=== PATIENT | male | born 1975 | race Two or more races ===

== ENCOUNTER 2017-08-04 16:33 | Emergency (ER) | payer MEDICAID ==
[~2017-08-04] VITALS: Ht 172.7 cm; Wt 99.8 kg
[2017-08-04] MEDS ORDERED: oxyCODONE HCL/Acetaminophen 5/325mg ORAL ONE (17:15)
[2017-08-04] MEDS ORDERED: Ketorolac 30mg Inj IV ONE (19:00)
[2017-08-04] MEDS ORDERED: Morphine Sulfate 4mg/ml Inj IVP ONE (19:00)
[2017-08-04 19:17] VITALS: BP 136/71
[2017-08-04 20:30] LABS: BASOPHILS % (AUTO) 0.9 % (0.0-2.0); EOSINOPHILS % (AUTO) 1.2 % (0.0-3.0); LYMPHOCYTES % (AUTO) 21.5 % (20.0-45.0); MEAN CORPUSCULAR HGB CONC 30.8 G/DL (32.0-36.0); MEAN CORPUSCULAR VOLUME 71 FL (80-99); MEAN PLATELET VOLUME 7.2 FL (6.5-10.1); MONOCYTES % (AUTO) 4.4 % (1.0-10.0); PLATELET COUNT 336 K/UL (150-450); RED BLOOD COUNT 5.34 M/UL (4.70-6.10); WHITE BLOOD COUNT 11.1 K/UL (4.8-10.8)
[2017-08-04 21:07] LABS: ALANINE AMINOTRANSFERASE 43 U/L (12-78); ALBUMIN/GLOBULIN RATIO 0.9 (1.0-2.7); ANION GAP 7 mmol/L (5-15); ASPARTATE AMINO TRANSFERASE 32 U/L (15-37); CALCIUM 9.2 MG/DL (8.5-10.1); CARBON DIOXIDE 28 MMOL/L (21-32); CHLORIDE 104 MMOL/L (98-107); CREATININE 1.5 MG/DL (0.55-1.30); GLOMERULAR FILTRATION RATE 51.1 mL/min (>60); SODIUM 139 MMOL/L (136-145)
[2017-08-04] MEDS ORDERED: Cephalexin 500mg cap ORAL ONE (22:00)
--- NOTE | 2017-08-04 22:08 | Emergency Room Report ---
History of Present Illness General Chief Complaint: Pain Source: Patient Present Illness HPI 41-year-old male presents to the emergency department complaining of 10 out of 10 in severity right-sided flank pain that radiates down into the right groin progressive times one week. Patient reports 2 episodes of vomiting secondary to pain denies nausea denies abdominal tenderness. Patient states his pain is intermittent and between episodes of pain he has complete relief. Patient reports history of kidney stones in the past. Patient denies frequency, dysuria , hematuria, testicular pain or swelling, constipation or diarrhea, penile discharge, rashes, swollen tender lymph nodes. Patient denies recent travel or ill contacts. Denies CP, Palpitations, LOC, AMS, dizziness, Changes in Vision, Sensation, paresthesias, or a sudden severe headache. Allergies: Coded Allergies: No Known Allergies (Unverified , 08/04/17) Patient History Past Medical History: see triage record Past Surgical History: none Pertinent Family History: none Immunizations: UTD Reviewed Nursing Documentation: PMH: Agreed, PSxH: Agreed Nursing Documentation-PMH Past Medical History: No History, Except For Hx Cerebrovascular Accident: No - KIDNEY STONE Review of Systems All Other Systems: negative except mentioned in HPI Physical Exam Vital Signs Date Time Temp Pulse Resp B/P (MAP) Pulse Ox O2 Delivery O2 Flow Rate FiO2 08/04/17 16:46 98.1 96 20 148/68 98 Room Air Sp02 EP Interpretation: reviewed, normal General Appearance: no apparent distress, alert, GCS 15, non-toxic Head: normocephalic, atraumatic Eyes: bilateral eye normal inspection, bilateral eye PERRL ENT: hearing grossly normal, normal pharynx, no angioedema, normal voice Neck: full range of motion, supple/symm/no masses Respiratory: lungs clear, normal breath sounds, speaking full sentences Cardiovascular #1: regular rate, rhythm, no edema, normal capillary refill Gastrointestinal: normal bowel sounds, non tender, soft, no guarding, no rebound, other - Negative [place] signs, Negative MacBurney's sign, Negative Rosvigns Sign, Negative Psoas, No Peritoneal signs. Rectal: deferred Genitourinary: normal inspection, CVA tenderness (R) Musculoskeletal: back normal, gait/station normal, normal range of motion, non- tender Neurologic: alert, oriented x3, responsive, motor strength/tone normal, sensory intact, normal gait, speech normal Psychiatric: judgement/insight normal, memory normal, mood/affect normal Skin: normal color, no rash, warm/dry, well hydrated Lymphatic: no adenopathy Medical Decision Making PA Attestation Dr. Haile is my supervising Physician whom patient management has been discussed with. Diagnostic Impression: Primary Impression: Kidney stones Additional Impression: Hydronephrosis due to obstruction of ureter ER Course 41-year-old male presents to the emergency department complaining of 10 out of 10 in severity right-sided flank pain that radiates down into the right groin progressive times one week. Patient reports 2 episodes of vomiting secondary to pain denies nausea denies abdominal tenderness. Patient states his pain is intermittent and between episodes of pain he has complete relief. Patient reports history of kidney stones in the past. Patient denies frequency, dysuria , hematuria, testicular pain or swelling, constipation or diarrhea, penile discharge, rashes, swollen tender lymph nodes. Patient denies recent travel or ill contacts. Denies CP, Palpitations, LOC, AMS, dizziness, Changes in Vision, Sensation, paresthesias, or a sudden severe headache. Ddx considered but are not limited to Diverticulitis, acute appy, diarrhea,UC, PUD, GE, pancreatitis, gallstone, kidney stone, pyelonephritis, UTI, obstruction. Vital signs: are WNL, pt. is afebrile H&PE are most consistent with Possible renal stone. ORDERS: -CBC: wbc's 11.1 - CMP: Elevated Cr. 1.5 - lipase: WNL - UA: rbc's, occult blood, no inflammatory markers , few bacteria - CT abdomen and pelvis no contrast: impression : ABNORMAL- two stones, one is 9mm in the right distal ureter with mild right hydronephrosis. and right 2.6 adenoma - per official radiology report by Dr. Hernandez. ED INTERVENTIONS: -5mg Percocet -- 1000NS --4mg Morphine for pain -Toradol IV -Flomax PO -Keflex PO DISPOSITION: Pt. Requests AMA. - At this time the patient is requesting to leave AGAINST MEDICAL ADVICE. I believe that this patient has the capacity to make decisions on His own. I discussed with the patient the risks of leaving AMA. Some of these risks include delay in diagnosis and treatment, as well as worsening of symptoms, organ damage, and permanent disability or even . After discussing these risks with the patient. He continues to express His want to leave AGAINST MEDICAL ADVICE. I encouraged the patient to return at any time, and that he will be welcome here in the emergency department to continue medical management. Labs Test 08/04/17 19:46 08/04/17 21:52 White Blood Count 11.1 K/UL (4.8-10.8) Red Blood Count 5.34 M/UL (4.70-6.10) Hemoglobin 11.8 G/DL (14.2-18.0) Hematocrit 38.1 % (42.0-52.0) Mean Corpuscular Volume 71 FL (80-99) Mean Corpuscular Hemoglobin 22.0 PG (27.0-31.0) Mean Corpuscular Hemoglobin Concent 30.8 G/DL (32.0-36.0) Red Cell Distribution Width 14.0 % (11.6-14.8) Platelet Count 336 K/UL (150-450) Mean Platelet Volume 7.2 FL (6.5-10.1) Neutrophils (%) (Auto) 72.0 % (45.0-75.0) Lymphocytes (%) (Auto) 21.5 % (20.0-45.0) Monocytes (%) (Auto) 4.4 % (1.0-10.0) Eosinophils (%) (Auto) 1.2 % (0.0-3.0) Basophils (%) (Auto) 0.9 % (0.0-2.0) Sodium Level 139 MMOL/L (136-145) Potassium Level 4.0 MMOL/L (3.5-5.1) Chloride Level 104 MMOL/L (98-107) Carbon Dioxide Level 28 MMOL/L (21-32) Anion Gap 7 mmol/L (5-15) Blood Urea Nitrogen 12 mg/dL (7-18) Creatinine 1.5 MG/DL (0.55-1.30) Estimat Glomerular Filtration Rate 51.1 mL/min (>60) Glucose Level 98 MG/DL (74-106) Calcium Level 9.2 MG/DL (8.5-10.1) Total Bilirubin 0.5 MG/DL (0.2-1.0) Aspartate Amino Transf (AST/SGOT) 32 U/L (15-37) Alanine Aminotransferase (ALT/SGPT) 43 U/L (12-78) Alkaline Phosphatase 102 U/L (46-116) Total Protein 8.0 G/DL (6.4-8.2) Albumin 3.8 G/DL (3.4-5.0) Globulin 4.2 g/dL Albumin/Globulin Ratio 0.9 (1.0-2.7) Urine Color Yellow Urine Appearance Clear Urine pH 6.5 (4.5-8.0) Urine Specific [place] 1.020 (1.005-1.035) Urine Protein 1+ (NEGATIVE) Urine Glucose (UA) Negative (NEGATIVE) Urine Ketones 3+ (NEGATIVE) Urine Occult Blood 5+ (NEGATIVE) Urine Nitrite Negative (NEGATIVE) Urine Bilirubin Negative (NEGATIVE) Urine Urobilinogen 1 MG/DL (0.0-1.0) Urine Leukocyte Esterase 1+ (NEGATIVE) Urine RBC 5-10 /HPF (0 - 0) Urine WBC 2-4 /HPF (0 - 0) Urine Squamous Epithelial Cells None /LPF (NONE/OCC) Urine Bacteria Few /HPF (NONE) Last Vital Signs Date Time Temp Pulse Resp B/P (MAP) Pulse Ox O2 Delivery O2 Flow Rate FiO2 08/04/17 19:17 89 20 136/71 98 Room Air 08/04/17 16:46 98.1 Disposition: AGAINST MEDICAL ADVICE Condition: Unknown Scripts Ibuprofen* (MOTRIN*) 600 Mg Tablet 600 MG ORAL THREE TIMES A DAY, #30 TAB 0 Refills Prov: Della Plasencia P.A. 08/04/17 Hydrocodone Bit/Acetaminophen 7.5-325* (NORCO 7.5-325*) 1 Each Tablet 1 TAB ORAL Q6H Y for For Pain, #10 TAB 0 Refills Prov: Della Plasencia P.A. 08/04/17 Tamsulosin Hcl (TAMSULOSIN HCL*) 0.4 Mg Cap.er.24h 0.4 MG ORAL BEDTIME for 3 Days, #3 CAP Prov: Della Plasencia P.A. 08/04/17 Cephalexin* (KEFLEX*) 500 Mg Capsule 500 MG ORAL EVERY 12 HOURS for 7 Days, #14 CAP 0 Refills Prov: Della Plasencia P.A. 08/04/17 Referrals: [facility],REFERRING (PCP) Patient Instructions: Hydronephrosis, Kidney Stones Additional Instructions: You are leaving AMA, before results of your diagnostic lab work are available. This can cause delayed diagnosis as well as treatment, and ultimately leading up to worsening of symptoms, damage to organs, permanent disability or even . You are encouraged to return to the ER at any time if you want to continue your evaluation Take medications as directed. Followup with urology specialist within 24 hours Della Plasencia Aug 04, 2017 22:08
[2017-08-04] MEDS ORDERED: NORCO 7.5-3251 EACH ORAL (22:10)
[2017-08-04] MEDS ORDERED: TAMSULOSIN HCL0.4 MG ORAL (22:10)
[2017-08-04] MEDS ORDERED: IBUPROFEN600 MG ORAL (22:10)
[2017-08-04] MEDS ORDERED: CEPHALEXIN500 MG ORAL (22:10)
[2017-08-04 22:19] LABS: APPEARANCE,URINE CLEAR; KETONES,URINE 3+ (NEGATIVE); LEUKOCYTE ESTERASE ,URINE 1+ (NEGATIVE); NITRITE,URINE NEGATIVE (NEGATIVE); PH,URINE 6.5 (4.5-8.0); PROTEIN,URINE 1+ (NEGATIVE); UROBILINOGEN,URINE 1 MG/DL (0.0-1.0)
[2017-08-04 22:27] VITALS: BP 136/71
[2017-08-04] MEDS ORDERED: Tamsulosin 0.4mg cap ORAL ONE (22:30)
[2017-08-04 22:35] LABS: BACTERIA,URINE FEW /HPF
--- NOTE | 2017-08-05 08:52 | Diagnostic Imaging Report ---
Indication: Abdominal pain Technique: Continuous helical transaxial imaging of the abdomen and pelvis was obtained from the lung bases to the pubic symphysis. No intravenous contrast was administered. Coronal 2-D reformats were also obtained. Total Dose length Product (DLP): [address] Dose Index Volume (CTDIvol): 19.28, 0.15 mGy Comparison: none Findings: Mild right hydronephrosis demonstrated. This is secondary to 2 distal ureteral stones measuring 6 mm and 2 mm. Stones are adjacent to each other and several centimeters proximal to the UVJ. Tiny nonobstructive stones are seen in the left kidney. No free fluid or free air identified. No evidence of bowel obstruction. The urinary bladder is nondistended. There is a mass low density in the right adrenal gland measuring approximately 2.6 cm. Gallbladder is unremarkable. Lung bases are clear. Impression: Right hydronephrosis secondary to a tandem ureteral stones in the distal ureter. Nonobstructive stone the left kidney also noted. 2.6 mm right adrenal mass versus cyst. The CT scanner at [facility] is accredited by the [employer] and the scans are performed using dose optimization techniques as appropriate to a performed exam including Automatic Exposure control.
[2017-08-05] MEDS ORDERED: Tamsulosin 0.4mg cap ORAL SCH (21:00)
== END 2017-08-04 22:27 | disposition left against medical advice (07) ==
LOC: EMR 17:53
DX: N13.2 Hydronephrosis with renal and ureteral calculous obstruction (principal)
CPT/HCPCS: 36415; 74176; 80053; 81003; 85025; 96361; 96374; 96375; 99284; J1885; J2270